=== PATIENT | female | born 1985 | race Two or more races ===

== ENCOUNTER 2020-10-28 14:28 | Emergency (ER) | payer SELFPAY ==
[~2020-10-28] VITALS: Ht 162.6 cm; Wt 61.5 kg
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
[2020-10-28] MEDS ORDERED: HYDROmorphone 1 MG/ML, 1ML INJ ONE (15:58)
[2020-10-28] MEDS ORDERED: HYDROmorphone 1 MG/ML, 1ML INJ IVPush PRN (16:00)
[2020-10-28] MEDS ORDERED: SODIUM CHLORIDE FLUSH 10ML SYR IVF ONE (16:00)
--- NOTE | 2020-10-28 16:11 | NUR ---
PT TO CT
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
[2020-10-28 16:22] LABS: BASOPHILS % (AUTO) 0 % (0-1); EOSINOPHILS % (AUTO) 1 % (1-7); LYMPHOCYTES % (AUTO) 18 % (22-44); MEAN CORPUSCULAR HEMOGLOBIN 32.5 pg (27.0-34.8); MEAN CORPUSCULAR HGB CONC 33.8 g/dL (32.4-35.8); MEAN PLATELET VOLUME 7.9 fL (7.4-10.4); MONOCYTES % (AUTO) 6 % (2-9); NEUTROPHILS % (AUTO) 75 % (42-75); PLATELET COUNT 345 x10^3/uL (130-400); RED BLOOD COUNT 4.52 x10^6/uL (3.82-5.3); RED CELL DISTRIBUTION WIDTH 13.7 % (9.6-15.2)
[2020-10-28 16:25] LABS: MD NO
[2020-10-28 16:31] LABS: ALANINE AMINOTRANSFERASE 19 U/L (12-78); ANION GAP 8 mmol/L (5-15); CHLORIDE 109 mmol/L (98-107)
[2020-10-28 16:34] LABS: ALKALINE PHOSPHATASE 104 U/L (45-117); BILIRUBIN,TOTAL 0.4 mg/dL (0.2-1.0); TOTAL PROTEIN 7.8 g/dL (6.4-8.2)
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
--- NOTE | 2020-10-28 16:42 | NUR ---
[employer] CALLED, REPORT FILED BY MANAGER HOUSE.
--- NOTE | 2020-10-28 17:07 | NUR ---
[employer] ARRIVED AND AT BS, SURGERY NURSE AND PA AWARE.
--- NOTE | 2020-10-28 17:32 | NUR ---
PT TO X-RAY
[2020-10-28 17:49] VITALS: BP 125/99
--- NOTE | 2020-10-28 17:49 | NUR ---
pt back from x-ray.
--- NOTE | 2020-10-28 18:02 | NUR ---
FRIEND FROM [facility] AT BS. MD & LEATHER CARVER ALSO AT BS. DISCUSSING PLAN OF DISCHARGE & INSURING SAFETY AFTER PT LEAVES FACILITY
--- NOTE | 2020-10-28 18:33 | NUR ---
Patient& FRIEND given discharge instructions and they have confirmed that they understand the instructions. Patient ambulatory with steady gait. PT & FRIEND STATES PT HAS A SAFE PLACE TO GO UPON DISCHARGE.
== END 2020-10-28 18:35 | disposition home or self-care (01) ==
LOC: ED 18:00
DX: S50.11XA Contusion of right forearm, initial encounter (principal); S00.11XA Contusion of right eyelid and periocular area, initial encounter; S09.90XA Unspecified injury of head, initial encounter; M54.2 Cervicalgia; Y04.8XXA Assault by other bodily force, initial encounter; Y93.89 Activity, other specified; Y92.89 Other specified places as the place of occurrence of the external cause; Y99.8 Other external cause status
CPT/HCPCS: 36415; 70450; 72072; 72125; 73030; 73080; 73110; 73130; 74176; 80053; 85025; 96374; 99285; J1170